=== PATIENT | male | born 1985 | race Caucasian/White ===

== ENCOUNTER 2024-03-13 14:01 | Emergency (ER) | payer BC, SELFPAY ==
--- NOTE | 2024-03-13 14:15 | PC.NURSE ---
Dr. Quintanilla at bedside
--- NOTE | 2024-03-13 14:19 | XR_ITS ---
PROCEDURE INFORMATION: Exam: XR Right Elbow Exam date and time: 03/13/2024 2:27 PM Age: 38 years old Clinical indication: Injury or trauma; Fall; Blunt trauma (contusions or hematomas); Elbow; Right; Additional info: Distal posterior pain foosh, cant flex/extend TECHNIQUE: Imaging protocol: Radiologic exam of the right elbow. Views: 3 or more views. COMPARISON: CR Humerus R 03/13/2024 2:24 PM FINDINGS: Bones/joints: There is a nondisplaced oblique fracture through the proximal right ulna/olecranon. There is a small right elbow effusion. Soft tissues: Normal. IMPRESSION: Nondisplaced oblique fracture proximal right ulna and small right elbow effusion.
--- NOTE | 2024-03-13 14:19 | XR_ITS ---
PROCEDURE INFORMATION: Exam: XR Right Forearm Exam date and time: 03/13/2024 2:28 PM Age: 38 years old Clinical indication: Injury or trauma; Fall; Blunt trauma (contusions or hematomas); Arm, lower; Right; Additional info: Elbow pain after foosh, can't flex/edtend TECHNIQUE: Imaging protocol: Radiologic exam of the right forearm. Views: 2 views. COMPARISON: CR XR ELBOW RT MIN 3V 03/13/2024 2:27 PM FINDINGS: Bones/joints: There is a nondisplaced, oblique fracture through the proximal right ulna extending into the olecranon. There is a small right elbow effusion. The distal right radius and ulna are intact. Soft tissues: Normal. IMPRESSION: Oblique fracture through the proximal right ulna extending into the olecranon.
--- NOTE | 2024-03-13 14:19 | XR_ITS ---
PROCEDURE INFORMATION: Exam: XR Right Humerus Exam date and time: 03/13/2024 2:24 PM Age: 38 years old Clinical indication: Pain; Upper arm; Right; Additional info: Distal posterior pain foosh TECHNIQUE: Imaging protocol: Radiologic exam of the right humerus. Views: 2 or more views. COMPARISON: No relevant prior studies available. FINDINGS: Bones/joints: Normal. No fracture or dislocation. Soft tissues: Normal. IMPRESSION: No acute findings.
--- NOTE | 2024-03-13 14:33 | PC.NURSE ---
pt to RAD for xray
--- NOTE | 2024-03-13 14:40 | CT_ITS ---
PROCEDURE INFORMATION: Exam: CT Right Upper Extremity Without Contrast, Elbow Exam date and time: 03/13/2024 2:48 PM Age: 38 years old Clinical indication: Injury or trauma; Fall; Blunt trauma (contusions or hematomas); Elbow; Right; Additional info: Intraarticular fracture, eval TECHNIQUE: Imaging protocol: Computed tomography of the right upper extremity without contrast. Exam focused on the elbow. Radiation optimization: All CT scans at this facility use at least one of these dose optimization techniques: automated exposure control; mA and/or kV adjustment per patient size (includes targeted exams where dose is matched to clinical indication); or iterative reconstruction. COMPARISON: CR XR ELBOW RT MIN 3V 03/13/2024 2:27 PM FINDINGS: Bones/joints: There is a comminuted fracture through the proximal right ulna. Fracture lines course through the olecranon anteriorly and posteriorly and involve the articular surfaces. Fracture lines course through the coracoid process. No evidence of a dislocation. The distal right humerus is intact. The proximal right radius is intact. There is trace right elbow effusion. Soft tissues: Normal. IMPRESSION: Comminuted but nondisplaced fracture through the proximal right ulna primarily involving the olecranon and coracoid process. Fracture lines extend to the articular surface of the ulna.
--- NOTE | 2024-03-13 14:44 | HMH.EDGENADL ---
Discharge Plan Disposition Patient Disposition: Home, Self-Care Referrals Follow up/Referrals: Jules Dela Cruz DO [Staff Physician] - See instructions Provider,Referral, [Primary Care Provider] - See instructions Activity Restrictions/Add. Instructions Additional Instructions/Restrictions: Call your family doctor to establish care for this visit to the emergency department and schedule follow-up within 48 hours to ensure improvement. If you have any worsening of your condition or any other concerning signs or symptoms, return to the emergency department or your primary care doctor for further evaluation. See Dr. Dela Cruz for further evaluation and management. Be sure to keep splint clean, dry, intact to potentially prevent need for surgery. Do not bear weight or put any weight on your right arm until following up. Clinical Impressions Clinical Impression: Elbow fracture, right Qualifiers: Encounter type: initial encounter Fracture type: closed Qualified Code(s): S42.401A - Unspecified fracture of lower end of right humerus, initial encounter for closed fracture Print Language Print Language: Amharic Discharge ED Provider: David Quintanilla General Adult HPI General Stated complaint: AO 03/12/24. fell inj right arm Time Seen by Provider: 03/13/24 14:12 History of Present Illness HPI narrative: Please note that above description of symptoms, in this electronic medical record under categorization of recalled from ER triage doctor by RN are reflective of an initial nursing assessment, however, is not reflective of my full history and physical exam that was personally taken and clarified. Consequentially, this preceding description of symptoms, which may include the patient's categorized chief complaint in the EMR, do not reflect my personal clinical impression, and the ultimate description of history of present illness and patient stated complaints should be deferred to this section of the note. Unless stated otherwise or congruent with this section of the note, additional signs, symptoms, or incongruence should be interpreted as inaccurate with my clinical impression. Related Data Allergies Allergy/AdvReac Type Severity Reaction Status Date / Time No Known Allergies Allergy Verified 03/13/24 14:49 [facility] Disclaimer: The information contained in this section may have been updated after the patient was seen, as this information can be updated by other users. Social History Smoking Status: Never smoker alcohol intake: never current occupational status: employed Travel in the last 8 weeks: None ROS Obtained: Yes All systems reviewed & no additional complaints except as documented Physical Exam General General appearance: alert Head Head exam: atraumatic and normocephalic Eye Eye exam: Present normal appearance, PERRL and EOMI Neck Neck exam: Present normal inspection, full ROM and trachea midline Respiratory Respiratory exam: Absent respiratory distress, wheezes, stridor, accessory muscle use or prolonged expiratory phase Cardiovascular Cardiovascular exam: Present other (Pulses equal symmetric in upper and lower extremities) Abdominal Exam Abdominal exam: Present soft; Absent distention, tenderness or pulsatile mass Extremities Exam Extremities exam: Present edema and other (Right elbow effusion. Tenderness about posterior aspect of elbow at olecranon as well as proximal ulna. No evidence of radial tenderness. Patient does have deep joint tenderness with palpation of antecubital fossa. Can partially flex/extend, full ROM unable to be obtained. NV intact) Neurological Exam Neurological exam: Present alert, oriented X3 and CN II-XII intact; Absent motor sensory deficit Skin Skin exam: Present warm and dry; Absent diaphoresis or erythema Medical Decision Making Medical Records Medical records reviewed: Yes I reviewed the patient's medical records. Eugenio Inquiry Pt receiving controlled substance: No Eugenio was queried for this patient: No Orders (Tests/Meds): ED MEDICATIONS Discontinued Medications Generic Name Dose Route Start Last Admin Trade Name Freq PRN Reason Stop Dose Admin Acetaminophen 1,000 mg 03/13/24 14:19 03/13/24 14:50 Acetaminophen 500mg Tab PO 03/13/24 14:20 1,000 mg ONCE ONE Administration Ibuprofen 600 mg 03/13/24 14:19 03/13/24 14:50 Ibuprofen 600 Mg Tablet PO 03/13/24 14:20 600 mg ONCE ONE Administration ORDERS Category Date Time Status CT elbow RT wo con Stat Cat Scan 03/13/24 14:40 Taken Elbow XR right minimum 3 views [XR elbow RT min 3V] Exams 03/13/24 14:19 Completed Stat Forearm XR right 2 views [XR forearm RT 2V] Stat Exams 03/13/24 14:19 Taken Humerus XR right [XR humerus RT] Stat Exams 03/13/24 14:19 Completed Medical Decision Narrative: Otherwise healthy 38-year-old male presenting with right arm injury. Patient fell yesterday 03/12 and his arm went through a bookshelf. Had immediate pain. Did not come until today, thought he was treated at home with Tylenol Motrin, etc and supportive care. Because it was continuing to have pain and started swelling, came in for further evaluation. Pain is moderate to severe in intensity with range of motion, mild in intensity without range of motion, does not radiate. No neurologic deficits. History was obtained via conversation with patient. On arrival, patient hemodynamically stable, alert, oriented x4, appropriate, GCS 15, moving all extremities spontaneously, pupils equal and reactive to light. Full physical exam performed and significant for Right elbow effusion. Tenderness about posterior aspect of elbow at olecranon as well as proximal ulna. No evidence of radial tenderness. Patient does have deep joint tenderness with palpation of antecubital fossa. Can partially flex/extend, full ROM unable to be obtained. NV intact. Differential includes fracture, dislocation, sprain, strain, neurovascular injury, among others. Patient was given Tylenol Motrin p.o. for symptomatic management and correction of underlying abnormalities. Workup independently interpreted and significant for spiral fracture right ulna extending intra-articularly with elbow joint effusion on the right on independent interpretation. CT of the right elbow was ordered for further evaluation. See radiology read for full review of final results. On reevaluation, patient resting comfortably. Ortho-Glass posterior long-arm splint applied by splint substation technician. Neurovascular intact afterward. Patient placed in sling. Patient requires orthopedic bracing due to weakness or deformity requiring stabilization. The use of this splint will benefit the patient's functionality and prevent further injury. Given patient presentation, workup, history, this most likely represents intra-articular right elbow fracture after fall on outstretched arm. Because patient at baseline without signs or symptoms of clinical decompensation, deemed appropriate for discharge. Results were relayed to patient who voiced understanding and were agreeable to outpatient management and follow up. I discussed my clinical impression with patient and answered all questions. At this time, the evidence for any other entities in the differential is insufficient to warrant any further testing or ED observation. This was explained as well. Advisory was given that persistent or worsening symptoms require further evaluation. I confirmed the understanding of this discussion. Poultry Scientist disclaimer Much of this encounter note is an electronic drainage design coordinator spoken language to printed text. Electronic drainage design coordinator of the spoken language may permit errors. Although I have reviewed the note, some errors may still exist. Procedures Orthopedic Splinting/Casting Injury #1: Side: right Upper Extremity Injury Location: elbow Upper Extremity Immobilizer: posterior splint (Long-arm) Post Cast/Splinting Neuro Status: intact and no change Post Cast/Splinting Vasc Status: intact and no change Critical Care Critical Care Time Critical Care Time: No
[2024-03-13] MEDS: IBUPROFEN 600 MG TABLET PO (14:50)
[2024-03-13] MEDS: ACETAMINOPHEN 500MG TAB 1000 MG PO (14:50)
[2024-03-13 15:44] VITALS: BP 132/77; PULSE 81; RESP 18; TEMP 36.7; O2SAT 98
== END 2024-03-13 15:47 | disposition home or self-care (01) ==
PROVIDERS: Emergency Provider Emergency Medicine
DX: S52.044A Nondisplaced fracture of coronoid process of right ulna, initial encounter for closed fracture (principal); W01.190A Fall on same level from slipping, tripping and stumbling with subsequent striking against furniture, initial encounter
CPT/HCPCS: 29105; 73060; 73080; 73090; 73200; 99284

== ENCOUNTER 2024-03-17 13:10 | Outpatient (CLI) | payer BC, SELFPAY ==
--- NOTE | 2024-03-17 13:18 | XR_ITS ---
FINAL REPORT CLINICAL HISTORY: Rt Elbow Pain COMPARISON: 03/13/2024 FINDINGS: Right elbow Five views were obtained. There has been interval application of a cast. Again identified is an oblique fracture through the proximal ulna, stable since previous. IMPRESSION: Fracture as above. Reviewed, Interpreted and Dictated by Jay Gutierrez MD Transcribed by Sindy Yeboah Authenticated and [facility]
== END 2024-03-17 23:59 | disposition home or self-care (01) ==
LOC: RAD 13:11
PROVIDERS: Visit Provider Orthopaedic Surgery
DX: M25.521 Pain in right elbow (principal); S42.401A Unspecified fracture of lower end of right humerus, initial encounter for closed fracture
CPT/HCPCS: 73080

== ENCOUNTER 2024-03-23 12:22 | Outpatient (CLI) | payer BC, SELFPAY ==
--- NOTE | 2024-03-23 12:26 | XR_ITS ---
FINAL REPORT CLINICAL HISTORY: right elbow pain COMPARISON: 03/17/2024 FINDINGS: Right elbow Three views were obtained. There is a nondisplaced fracture of the proximal ulna. Findings are stable since previous. A splint is present. IMPRESSION: Fracture as above. Reviewed, Interpreted and Dictated by Christian Pandey III, MD Transcribed by Sindy Yeboah Authenticated and [facility]
== END 2024-03-23 23:59 | disposition home or self-care (01) ==
LOC: RAD 12:22
PROVIDERS: Visit Provider Orthopaedic Surgery
DX: M25.521 Pain in right elbow (principal); S52.034A Nondisplaced fracture of olecranon process with intraarticular extension of right ulna, initial encounter for closed fracture
CPT/HCPCS: 73080

== ENCOUNTER 2024-04-01 12:33 | Outpatient (CLI) | payer BC, SELFPAY ==
--- NOTE | 2024-04-01 12:40 | XR_ITS ---
FINAL REPORT CLINICAL HISTORY: right elbow fx COMPARISON: 03/23/2024 FINDINGS: Right elbow Three views were obtained. There is an oblique fracture of the proximal ulna. The bony alignment is stable. There is no significant callus formation. No other fracture or dislocation is identified. IMPRESSION: Fracture as above. Reviewed, Interpreted and Dictated by Christian Pandey III, MD Transcribed by Sindy Yeboah Authenticated and [facility]
== END 2024-04-01 23:59 | disposition home or self-care (01) ==
LOC: RAD 12:33
PROVIDERS: Visit Provider Physician Assistant Surgical
DX: M25.521 Pain in right elbow (principal); S42.401A Unspecified fracture of lower end of right humerus, initial encounter for closed fracture
CPT/HCPCS: 73080

== ENCOUNTER 2024-04-01 13:33 | Outpatient (RCR) | payer BC, SELFPAY | END 2024-04-01 15:00 | disposition home or self-care (01) | LOC: OT 13:33 | PROVIDERS: Visit Provider Physician Assistant Surgical | DX: M25.521 Pain in right elbow (principal); S52.021A Displaced fracture of olecranon process without intraarticular extension of right ulna, initial encounter for closed fracture | CPT/HCPCS: 97763 ==

== ENCOUNTER 2024-04-15 13:12 | Outpatient (CLI) | payer BC, SELFPAY ==
--- NOTE | 2024-04-15 13:15 | XR_ITS ---
FINAL REPORT CLINICAL HISTORY: rt elbow pain f/u fracture COMPARISON: 04/01/2024 FINDINGS: RIGHT ELBOW 3 views were obtained. There has been interval removal of the cast. There is an oblique mildly comminuted nondisplaced fracture of the proximal ulna. There is no joint effusion. The joint spaces are intact. There is no soft tissue abnormality. IMPRESSION: Oblique mildly comminuted nondisplaced fracture proximal ulna. Reviewed, Interpreted and Dictated by Jay Gutierrez MD Transcribed by Shayy Cerrato Authenticated and [facility]
== END 2024-04-15 23:59 | disposition home or self-care (01) ==
LOC: RAD 13:13
PROVIDERS: Visit Provider Physician Assistant Surgical
DX: M25.521 Pain in right elbow (principal)
CPT/HCPCS: 73080

== ENCOUNTER 2024-05-13 09:43 | Outpatient (CLI) | payer BC, SELFPAY ==
--- NOTE | 2024-05-13 09:47 | XR_ITS ---
FINAL REPORT CLINICAL HISTORY: right elbow fx COMPARISON: 04/15/2024 FINDINGS: RIGHT ELBOW 3 views of the right elbow were obtained. There is a longitudinal fracture of the proximal ulna with a mildly comminuted appearance. There is no significant displacement. Mild callus formation is noted. The joint spaces are well-preserved. There is no acute soft tissue abnormality. IMPRESSION: Healing proximal ulnar fracture. Reviewed, Interpreted and Dictated by Harsha Vela MD Transcribed by Jessica Slaughter Authenticated and [facility]
== END 2024-05-13 23:59 | disposition home or self-care (01) ==
LOC: RAD 09:43
PROVIDERS: Visit Provider Physician Assistant Surgical
DX: M25.521 Pain in right elbow (principal); S52.034A Nondisplaced fracture of olecranon process with intraarticular extension of right ulna, initial encounter for closed fracture
CPT/HCPCS: 73080

== ENCOUNTER 2024-06-23 10:00 | Outpatient (RCR) | payer BC, SELFPAY ==
--- NOTE | 2024-04-30 09:58 | HMH.PTOPEV ---
PT Outpatient Evaluation Rehab PT Outpatient Evaluation Start: 04/30/24 08:50 Freq: Status: Active Protocol: Document 04/30/24 09:11 JAZ (Rec: 04/30/24 09:58 JAZ [id number]) E-signed By Ignacio West, PT Outpatient Therapy Subjective History Subjective History Pt presents s/p right elbow/ olecranon comminuted fx, caused by fall at home on 03/13. Pt reports elbow fx has been progressive healing, and has been able to increase ROM in T-ROM elbow brace over the last couple weeks. 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 Chief Complaint Pain,Stiff,Weakness Symptom Type Ache,Dull Symptoms Relieved By Rest/Positioning Symptoms Aggravated By Physical Activity,Lifting Prior Functional Limitations None Current Functional Limitations Lifting,Housework Symptom Description Intermittent Level of pain today (0-10) 0 Pain scale - at its best (0-10) 0 Pain scale - at its worst (0-10) 3 Shoulder/Elbow Eval Shoulder Objective Measurements Elbow Objective Measurements Palpation Tenderness Elbow Palpation Overall Comment 2-3/4-olecranon/tricep insertion Elbow Palpation Finding Tenderness tenderness over the lateral epicondyle right elbow exam standard tenderness over the medial epicondyle right elbow exam standard Elbow ROM Right Elbow Extension Active Range of Motion ( +5 degrees) Elbow Extension Passive Range of Motion 0 (degrees) Elbow Flexion Active Range of Motion ( 5-125 degrees) Elbow Pronation of Forearm Range of 0-80 Motion (degrees) Elbow Supination of Forearm Range of 0-65 Motion (degrees) Elbow MMT Elbow Flexion Strength Grade 4- Good- Elbow Extension Strength Grade 3 Fair Supination Strength Grade 4- Good- Pronation Strength Grade 4- Good- Wrist/Hand Eval Wrist Range of Motion Wrist Extension Active Range of Motion ( 0-71 degrees) Wrist Flexion Active Range of Motion ( 0-70 degrees) Wrist Manual Muscle Testing Right Wrist Extension Strength Grade 4- Good- Wrist Flexion Strength Grade 4- Good- QuickDASH Activities Please rate your ability to do the following activities in the last week by selecting the number below the appropriate response. 1. Open a tight or new jar. Moderate difficulty 2. Do heavy field sales executive (e.g., wash Moderate difficulty wilkes, floors). 3. Carry a shopping bag or briefcase. Moderate difficulty 4. Wash your back. Moderate difficulty 5. Use a knife to cut food. Moderate difficulty 6. Recreational activities in which you Unable take some force or impact through your arm, shoulder, or hand (e.g., golf, hammering, tennis, etc.). 7. During the past week, to what extent Quite a bit has your arm, shoulder or hand problem interfered with your normal social activities with family, friends, neighbors or groups? 8. During the past week, were you Unable limited in your work or other regular daily activites as a result of your arm, shoulder or hand problem? 9. Arm, shoulder or hand pain. Moderate 10. Tingling (pins and needles) in your Mild arm, shoulder or hand. 11. During the past week, how much Moderate difficulty difficulty have you had sleeping because of the pain in your arm, shoulder or hand? Quick DASH 37 Work Module (optional) The following questions ask about the impact of your arm, shoulder or hand problem on your ability to work (including homemaking if that is your main work role). 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 Yes 1. Using your usual technique for your Unable work? 2. Doing your usual work because of arm, Unable shoulder or hand pain? 3. Doing your work as well as you would Unable like? 4. Spending your usual amount of time Unable doing your work? Quick Dash Work Module Score 20 Sports/Performing Arts Module (optional) The following questions relate to the impact of your arm, shoulder or hand problem on playing your musical instrument or sport or both. If you play more than one sport or instrument (or play both), please answer with respect to the activity which is most important to you. Please indicate the sport or instrument NA which is most important to you: Do you play a sport or instrument? No Outpatient Therapy Assessment Impairments Problems/Impairmments Palpation Tenderness,Impaired Range of Motion,Impaired Strength,Impaired Lifting, Impaired Household Care, Impaired Work Activities, Subjective C/O Pain,Impaired Self Care/Self Management Prognosis Rehab Potential Good Clinical Impression Consistent with Diagnosis Yes Short Term Goals Number of Weeks 4 Decreased Palpation Tenderness Yes: 1-2/4 right elbow/forearm Increase Range of Motion Yes: 75% of WFL RIGHT ELBOW, FOREARM AROM Increase Strength Yes: 4/5 RIGHT UE MM Improve Ability For Household Care Yes: 30MIN Decrease Subjective C/O Pain Yes: 3/10 W/ABOVE ACTIVITIES Patient to be Ind w/ HEP Yes [facility] Goals Number of Weeks 6-8 Decreased Palpation Tenderness Yes: 0-1/4 RIGHT UE/ELBOW Increase Range of Motion Yes: WFL RIGHT ELBOW,WRIST, FOREARM AROM Increase Strength Yes: 4+-5/5 R UE, AUDIT MGR Restore Ability to Lift Objects to Waist Yes: 40# RUE-FOR WORK-RELATED Level ACTIVITIES Restore Ability to Lift Objects to Yes: 10# RUE Shoulder Level Restore Ability to Lift Objects Overhead Yes: 2-3# RUE Improve Ability For Household Care Yes: 60MIN Improve Tolerance to Work Activities Yes: WFL FULL-DUTY Decrease Subjective C/O Pain Yes: 0-2/10 W/ABOVE ACTIVITIES Patient to be Ind w/ Advanced HEP Yes Outpatient Therapy Plan of Care Treatment Plan May Include Therapeutic Exercise Including Home Yes Exercise Program Manual Therapy Techniques Yes Neuromuscular Re-education Yes Therapeutic Activities to Return to Yes Previous Functional/Work Level ADL/Self Care Education Yes Dry Needling Yes Thermal Modalities Yes Electrical Stimulation Yes Ultrasound/Phonophoresis Yes Orthotics/Bracing/Splinting Yes Vasopneumatic Compression Pump Yes Eval/Re-Eval Yes Frequency Times per week 2-3 Duration Number of Weeks 6-8 Addendums This patient is a candidate for social Yes or vocational rehab? Patient/Guardian verbally acknowledges Yes understanding of treatment program and consents to further treatment? Patient/Guardian verbally acknowledges Yes understanding of diagnosis, prognosis and goals for treatment? Eval Complexity PT Charges 64147 - Moderate Complexity PHYSICIAN CERTIFICATION: I certify the specified therapy services for Danie Mo are required, authorized, and reviewed every 30 days.
--- NOTE | 2024-05-31 11:29 | HMH.RHREAS ---
Rehab Reassessment Rehab OP Re-assessment Start: 04/30/24 08:50 Freq: Status: Active Protocol: Document 05/31/24 09:45 [email or web address] (Rec: 05/31/24 11:29 JAZ [id number]) E-signed By Ignacio West PT QuickDASH Activities Please rate your ability to do the following activities in the last week by selecting the number below the appropriate response. 1. Open a tight or new jar. Mild difficulty 2. Do heavy experimental box tester (e.g., wash Mild difficulty wilkes, floors). 3. Carry a shopping bag or briefcase. No difficulty 4. Wash your back. No difficulty 5. Use a knife to cut food. No difficulty 6. Recreational activities in which you Mild difficulty take some force or impact through your arm, shoulder, or hand (e.g., golf, hammering, tennis, etc.). 7. During the past week, to what extent Slightly has your arm, shoulder or hand problem interfered with your normal social activities with family, friends, neighbors or groups? 8. During the past week, were you Moderately limited limited in your work or other regular daily activites as a result of your arm, shoulder or hand problem? 9. Arm, shoulder or hand pain. Mild 10. Tingling (pins and needles) in your None arm, shoulder or hand. 11. During the past week, how much Mild difficulty difficulty have you had sleeping because of the pain in your arm, shoulder or hand? Quick DASH 19 Work Module (optional) The following questions ask about the impact of your arm, shoulder or hand problem on your ability to work (including homemaking if that is your main work role). 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 Yes 1. Using your usual technique for your Mild difficulty work? 2. Doing your usual work because of arm, Mild difficulty shoulder or hand pain? 3. Doing your work as well as you would Moderate difficulty like? 4. Spending your usual amount of time Mild difficulty doing your work? Quick Dash Work Module Score 9 Sports/Performing Arts Module (optional) The following questions relate to the impact of your arm, shoulder or hand problem on playing your musical instrument or sport or both. If you play more than one sport or instrument (or play both), please answer with respect to the activity which is most important to you. Do you play a sport or instrument? No Rehab Re-assessment Subjective Subjective Pt reports continued improvement in right elbow function and pain since I eval , reports 2-/10 right elbow pain on VAS this am, and feels 80-85% better overall since I eval. Objective Objective Notes AROM: RIGHT ELBOW FLX 0-136, RIGHT PRO AND SUP WFL, RIGHT WRIST FLX AND EXT WFL TTP: RIGHT ELBOW/OLECRANNON 0/ 4, R TRICEP INSERTION 0/4 MMT: RIGHT BICEP 4+-5/5, R TRICEP 4+-5/5, R WRIST FLX, EXT 5/5, R PRO,SUP 4+-5/5 Assessment Progress Assessment Progressing as Expected Assessment Notes Significantly improved right elbow strength, ROM, and TTP Patient goals met STG'S 01/21 LTG'S 11/25 Goals Not Met LTG'S 01/25 Plan Plan Pt to continue w/skilled P.T. to make further improvements in ROM, strength, and TTP to allow for optimal function and full functional return to all work-related activities Frequency of Therapy 2-3x/wk Duration of therapy 3-5wks Time and Billing Re-Eval Time 12 Re-Eval Billing Units 1 PHYSICIAN CERTIFICATION: I certify the specified therapy services for Danie Mo are required, authorized, and reviewed every 30 days.
== END 2024-06-23 23:59 | disposition home or self-care (01) ==
LOC: PT 10:00
PROVIDERS: Visit Provider Physician Assistant Surgical
DX: M25.521 Pain in right elbow (principal); S42.401A Unspecified fracture of lower end of right humerus, initial encounter for closed fracture
CPT/HCPCS: 97014; 97110; 97163; 97530; G0283

== ENCOUNTER 2024-06-24 08:24 | Outpatient (CLI) | payer BC, SELFPAY ==
--- NOTE | 2024-06-24 08:30 | XR_ITS ---
FINAL REPORT CLINICAL HISTORY: .fx 3 months ago no surgery COMPARISON: 04/15/2024 FINDINGS: Right elbow Three views were obtained. There is a subacute fracture of the proximal ulna with evidence of interval healing. IMPRESSION: Healing fracture as above. Reviewed, Interpreted and Dictated by Christian Pandey III, MD Transcribed by Sindy Yeboah Authenticated and [facility]
== END 2024-06-24 23:59 | disposition home or self-care (01) ==
LOC: RAD 08:25
PROVIDERS: Visit Provider Physician Assistant Surgical
DX: S42.401A Unspecified fracture of lower end of right humerus, initial encounter for closed fracture (principal)
CPT/HCPCS: 73080